=== PATIENT | male | born 1985 | race Caucasian/White ===

== ENCOUNTER 2019-07-09 09:18 | Emergency (ER) | payer MEDICARE, MEDICAID ==
[2019-07-09 09:52] VITALS: BP 96/71
--- NOTE | 2019-07-09 10:33 | ED ---
Respiratory - HPI Summary HPI Summary: 34 yr old male with the complaint of sore throat and cough. Onset four days ago. he has been coughing up white sputum. No fever or chills. No NV. No other complaints. No runny nose or ear pain. Symptoms are moderate. - History of Current Complaint Chief Complaint: UCGeneralIllness Stated Complaint: ST/COUGH Time Seen by Provider: 07/09/19 10:24 Pain Intensity: 0 - Allergy/Home Medications Allergies/Adverse Reactions: Allergies Allergy/AdvReac Type Severity Reaction Status Date / Time Penicillins Allergy Unknown Verified 07/09/19 09:53 Reaction Details Home Medications: Home Medications Docusate CAP* [Colace Cap*] 1 tab PO TID 07/09/19 [History Confirmed 07/09/19] Haloperidol CONC. ILYA (NF) [Haloperidol CONC. SOLUTION (NF)] 0.5 ml PO BEDTIME 07/09/19 [History Confirmed 07/09/19] Melatonin 1 tab PO BEDTIME 07/09/19 [History Confirmed 07/09/19] Pantoprazole TAB * [Protonix TAB*] 1 tab PO DAILY 07/09/19 [History Confirmed ] Polyethylene Glycol 3350* [Miralax*] 1 packet PO DAILY 07/09/19 [History Confirmed 07/09/19] clonazePAM TAB(*) [Klonopin TAB(*)] 2 tab PO QAM 07/09/19 [History Confirmed 11/26] PMH/Surg Hx/FS Hx/Imm Hx Cardiovascular History: Reports: Hx Hypertension - Surgical History Surgery Procedure, Year, and Place: R nephrectomy. T&A Infectious Disease History: No Infectious Disease History: Denies: Traveled Outside the [place] in Last 30 Days - Family History Known Family History: Positive: None - Social History Alcohol Use: None Substance Use Type: Reports: None Smoking Status (MU): Heavy Every Day Tobacco Smoker Amount Used/How Often: 1/2 ppd Review of Systems Constitutional: Negative Positive: Sore Throat Positive: Cough All Other Systems Reviewed And Are Negative: Yes Physical Exam Triage Information Reviewed: Yes Vital Signs On Initial Exam: Initial Vitals Temp Pulse Resp BP Pulse Ox 98.3 F 87 18 96/71 97 07/09/19 09:47 07/09/19 09:47 07/09/19 09:47 07/09/19 09:47 07/09/19 09:47 Vital Signs Reviewed: Yes Appearance: Positive: Well-Appearing, No Pain Distress Skin: Positive: Warm, Skin Color Reflects Adequate Perfusion Head/Face: Positive: Normal Head/Face Inspection Eyes: Positive: EOMI, KEVEN ENT: Positive: Pharyngeal erythema, TMs normal Neck: Positive: Nontender Respiratory/Lung Sounds: Positive: Clear to Auscultation, Breath Sounds Present Cardiovascular: Positive: RRR. Negative: Murmur Abdomen Description: Positive: Distended Musculoskeletal: Positive: Strength/ROM Intact Neurological: Positive: Sensory/Motor Intact, Alert, Oriented to Person Place, Time, CN Intact II-III, Speech Normal Psychiatric: Positive: Normal Diagnostics - Vital Signs Vital Signs Temp Pulse Resp BP Pulse Ox 07/09/19 09:47 98.3 F 87 18 96/71 97 - Laboratory Lab Statement: Any lab studies that have been ordered have been reviewed, and results considered in the medical decision making process. Disposition - Course Course Of Treatment: 34 yr old with URI symptoms. Dc home. - Diagnoses Provider Diagnoses: Upper respiratory infection, viral Discharge ED - Sign-Out/Discharge Documenting (check all that apply): Patient Departure All imaging exams completed and their final reports reviewed: No Studies - Discharge Plan Condition: Good Disposition: HOME Patient Education Materials: Upper Respiratory Infection (ED) Referrals: Onesimo Reich DO [Primary Care Provider] - 2 Days - Billing Disposition and Condition Condition: GOOD Disposition: Home
== END 2019-07-09 10:39 | disposition home or self-care (01) ==
LOC: UCCORT 09:18
DX: J06.9 Acute upper respiratory infection, unspecified (principal); I10 Essential (primary) hypertension; F17.210 Nicotine dependence, cigarettes, uncomplicated; Z88.0 Allergy status to penicillin
CPT/HCPCS: 99211; G0463